=== PATIENT | female | born 1945 | race Caucasian/White ===

== ENCOUNTER → 2018-12-28 | Outpatient (CLI) | payer MEDICARE ==
[2015-04-23 22:00] VITALS: BP 118/56
[~2018-12-28] MED LIST: ACET325T21 PO; AMLO1TAB93 PO; ATOR20TA PO; CITA10TA8 PO; HYDR1POW19 MC; LOSA100T14 PO; METO1TAB6 PO; ZOLP10TA PO
--- NOTE | 2018-12-28 16:35 | RAD ---
CLINICAL HISTORY: Elevated alkaline phosphatase levels, nausea COMPARISON: None available. TECHNIQUE: Limited ultrasound examination of the right upper quadrant of the abdomen was performed FINDINGS: Visualized portions of the pancreas are unremarkable. Liver: The liver measures 13.7 cm in length in the right mid clavicular line. Increased hepatic echogenicity relative to the right kidney consistent with hepatic steatosis. There is no focal abnormality of the liver. Portal and hepatic venous flow is confirmed with normal waveforms. Gallbladder/Biliary: There has been a cholecystectomy. The common bile duct measures 4.3 mm. The right kidney measures 9.4 cm in bipolar length. No focal renal lesion. No hydronephrosis. There is no free fluid in the subhepatic space. IMPRESSION: 1. Mild hepatic steatosis. 2. There has been a cholecystectomy. No biliary ductal dilatation. Electronically signed by: Ebenezer Singer MD (12/28/2018 4:32 PM) [facility]
== END | disposition home or self-care (01) ==
LOC: US 08:36
PROVIDERS: ATTEND Physician Assistant Medical
DX: K76.0 Fatty (change of) liver, not elsewhere classified (principal); Z90.49 Acquired absence of other specified parts of digestive tract
CPT/HCPCS: 76705

== ENCOUNTER → 2019-02-02 | Outpatient (CLI) | payer MEDICARE ==
[2015-04-23 22:00] VITALS: BP 118/56
[~2019-02-02] MED LIST changes: +IOHEXOL 240 MG/ML 50ML VIAL. ONE
[2019-02-02 08:44] LABS: GFR 54.3
[2019-02-02] MEDS: IOHEXOL 300 MG/ML 75 ML VIAL. IV ONE (09:27)
--- NOTE | 2019-02-02 10:29 | RAD ---
EXAM: Abdomen and pelvis CT with intravenous contrast. HISTORY: Abnormal liver function laboratory values. TECHNIQUE: Computed tomographic images of the abdomen and pelvis were obtained following the administration of 60 cc Omnipaque 300 intravenous contrast. Multiplanar reformatting was performed. *One or more of the following individualized dose reduction techniques were utilized for this examination: 1. Automated exposure control. 2. Adjustment of the mA and/or kV according to patient size. 3. Use of iterative reconstruction technique. COMPARISON: 04/23/2015. FINDINGS: Evaluation of the lower thorax demonstrates lingular and right middle lobe atelectasis or scarring. There is no infiltrate or pleural effusion. The heart is normal in size. There are few nonspecific left distal paraesophageal lymph nodes which are subcentimeter in size. No suspicious hepatic lesion is seen. The gallbladder is surgically absent. The pancreas, spleen and adrenal glands are unremarkable. There is a 1.5 cm simple appearing cyst within the lower pole the right kidney and there are multiple simple appearing left renal parapelvic cysts. There is no hydronephrosis. There are few colonic diverticula. There is no evidence of diverticulitis. There is no evidence of bowel obstruction. No pathologically enlarged retroperitoneal or mesenteric lymph node is seen. The bladder is empty. The uterus is surgically absent. No adnexal lesion is seen. The aorta is normal in caliber. There is evidence of prior ventral abdominal wall surgery. There is a ventral abdominal wall hernia containing fat and a small segment of small bowel at the level of the umbilicus. The hernia defect measures 8.0 cm transaxially and the hernia sac measures 12.2 cm transaxially. There is soft tissue density anterior inferior to the hernia sac possibly due to a postoperative seroma or scar/granulation tissue. No drainable fluid is seen. There is stable sclerotic changes involving the right iliac bone. There is a prominent osseous hemangioma at L3. There is severe right facet arthropathy at L5-S1. IMPRESSION: 1. Moderate incisional hernia within the ventral abdominal wall at the level of the umbilicus containing fat and a short loop of small bowel. There is no evidence of incarceration or mechanical obstruction. There is increased soft tissue along the anterior inferior aspect of the hernia sac which may be due to postoperative scar/granulation tissue or a seroma. 2. Few colonic diverticula. 3. Renal cysts. 4. Stable sclerotic changes involving the right iliac bone. Electronically signed by: Melani Polo MD (02/02/2019 10:26 AM) [facility]
[2019-02-05 16:07] LABS: MITOCHONDRIAL ABDY <20.0 Units (0.0-20.0)
== END | disposition home or self-care (01) ==
LOC: CT 08:09
PROVIDERS: ATTEND Internal Medicine Gastroenterology
DX: K43.2 Incisional hernia without obstruction or gangrene (principal); K57.30 Diverticulosis of large intestine without perforation or abscess without bleeding; N28.1 Cyst of kidney, acquired; M89.8X8 Other specified disorders of bone, other site; D18.09 Hemangioma of other sites; M12.88 Other specific arthropathies, not elsewhere classified, other specified site; R94.5 Abnormal results of liver function studies; Z90.49 Acquired absence of other specified parts of digestive tract
CPT/HCPCS: 36415; 74177; 82565; 82728; 83520; 83540; 83550; 84520; 86038; 86706; 86803; 87340; Q9967; 83516

== ENCOUNTER → 2019-03-24 | Outpatient (CLI) | payer MEDICARE ==
[2015-04-23 22:00] VITALS: BP 118/56
[~2019-03-24] MED LIST changes: -IOHEXOL 240 MG/ML 50ML VIAL. ONE
--- NOTE | 2019-03-24 18:01 | RAD ---
KNEE LEFT 3V History: Left knee pain. No evidence of acute fracture. No aggressive bone destruction. Joint spaces are intact. No significant soft tissue abnormality. IMPRESSION: No evidence of acute radiographic abnormality. Electronically signed by: Jose Carlos Carter MD (03/24/2019 5:58 PM) [facility]
== END | disposition home or self-care (01) ==
LOC: DXRAD 08:54
PROVIDERS: ATTEND Physician Assistant Medical
DX: M25.562 Pain in left knee (principal)
CPT/HCPCS: 73562

== ENCOUNTER → 2021-07-21 | Outpatient (CLI) | payer MEDICARE ==
[2015-04-23 22:00] VITALS: BP 118/56
--- NOTE | 2021-07-21 15:56 | RAD ---
EXAM: XR LT WRIST 3VIEWS, XR KNEE 3 VIEWS 07/21/2021 10:45 AM CLINICAL INDICATION: History of tendinitis in the wrists. Chronic knee pain. COMPARISON: Left knee radiograph 03/24/2019 TECHNIQUE: PA, oblique, and lateral views of the left wrist. AP, oblique, and lateral views of the r ight and left knees. FINDINGS: Left wrist: The bones are diffusely demineralized. No acute fracture. Alignment is normal. There is s evere degenerative joint disease at the first CMC joint with joint space narrowing, subchondral scler osis, and large osteophytes. No erosions. Soft tissue is normal. Right knee: No acute fracture or malalignment. Mild medial compartment narrowing. Small medial and la teral compartment osteophytes. Small joint effusion. Left knee: No acute fracture or malalignment. There are small patellofemoral and medial compartment o steophytes. No joint space narrowing. Small joint effusion. IMPRESSION: 1. 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 2. Right knee: Mild medial and lateral compartment degenerative joint disease. 3. Left knee: Mild medial and patellofemoral compartment degenerative joint disease. Electronically signed by: Shawnee Sanders MD (07/21/2021 3:54 PM) [id number]
== END ==
LOC: RAD 10:42
PROVIDERS: ATTEND Physician Assistant Medical
DX: M19.032 Primary osteoarthritis, left wrist (principal); M17.11 Unilateral primary osteoarthritis, right knee; M17.12 Unilateral primary osteoarthritis, left knee; M25.461 Effusion, right knee; M25.462 Effusion, left knee; M25.761 Osteophyte, right knee; M25.762 Osteophyte, left knee; M25.732 Osteophyte, left wrist
CPT/HCPCS: 73110; 73562-50